=== PATIENT | male | born 1960 | race Caucasian/White ===

== ENCOUNTER 2024-04-22 10:03 | Inpatient (IN) | payer BC, SELFPAY ==
[2024-04-22] VITALS (19 sets, daily range): BP systolic 111–156; BP diastolic 68–97; PULSE 71–92; RESP 12–21; TEMP 36.6–37.2; O2SAT 97–100; BMI 26.7
--- NOTE | 2024-04-22 | ECHO_ITS ---
Patient Info Name: Delio De Jesus Age: 63 years : 1960 Gender: Male Ht: 70 in Wt: 170 lbs BSA: 1.96 m2 HR: 75 bpm Heart Rhythm: Sinus Rhythm Technical Quality: Poor Exam Date: 04/22/2024 2:42 PM Exam Location: Echo Lab Patient Status: Inpatient Admit Date: 04/22/2024 Staff Ordering Physician: Santosh Marie MD Primer Expeditor And Drier: Caitlin Tapia RDCS Attending Provider: Julien David MD Exam Type: CA echo dop color flow w con Study Info Indications - NSTEMI Complete two-dimensional, color flow and Doppler transthoracic echocardiogram is performed with contrast to opacify the left ventricle and to improve the deliniation of the left ventricle endocardial borders. Reason for Poor Study: poor echocardiographic windows Summary 1. Left ventricular chamber dimension is normal. 2. There is no increased left ventricular wall thickness. 3. Left ventricular systolic function is moderately reduced, estimated at 30-35%. There is global hypokinesis with more pronounced hypokinesis of the mid and apical segments. 4. The left ventricular diastolic function is grade I diastolic dysfunction. 5. Right ventricular systolic function is normal. 6. No significant valvular disease. Left Ventricle Left ventricular chamber dimension is normal. Left ventricular systolic function is moderately reduced, estimated at 30-35%. There is global hypokinesis with more pronounced hypokinesis of the mid and apical segments. There is no increased left ventricular wall thickness. The left ventricular diastolic function is grade I diastolic dysfunction. Right Ventricle Right ventricular chamber dimension is normal. Right ventricular systolic function is normal. Left Atria Left atrial chamber dimension is normal. Right Atria Right atrial chamber dimension is normal. Atrial Septum Intact interatrial septum visualized by color flow imaging. Aortic Valve There is no aortic valve stenosis. There is no aortic valve regurgitation. Pulmonic Valve The pulmonic valve is not well visualized. There is no pulmonic regurgitation. Mitral Valve There is trace mitral valve regurgitation. Tricuspid Valve There is trace tricuspid valve regurgitation. Pericardium/Pleural There is no pericardial effusion. Inferior Vena Cava Normal inferior vena cava with >50% collapse upon inspiration consistent with normal right atrial pressure, 3 mmHg. Aorta The aortic root size at the sinus of Valsalva is normal. Left Ventricular Outflow Tract Name Value Normal LVOT 2D LVOT Diameter 1.88 cm LVOT Doppler LVOT Peak Gradient 2 mmHg LVOT Mean Gradient 1 mmHg LVOT VTI 14.71 cm LVOT VTI/AV VTI Ratio 0.75 LVOT Stroke Volume 40.95 ml LVOT CO 3.26 l/min LVOT CI 1.67 L/min/m2 Pulmonic Valve Name Value Normal PV Doppler
--- NOTE | ~2024-04-22 | XR_ITS ---
EXAMINATION: XR chest 1V portable DATE: 04/22/2024 11:26 INDICATION: ST elevation myocardial infarction. TECHNIQUE: A single frontal view of the chest was obtained on 2 radiographs. COMPARISON: None. FINDINGS: Calcified right lung nodules and calcified right hilar lymph nodes are consistent with old granulomatous disease. No pleural effusion or pneumothorax. The heart is normal. IMPRESSION: 1. No acute cardiopulmonary disease. Reviewed, dictated and finalized at location A.
--- NOTE | 2024-04-22 09:57 | ED.CHESTPAIN ---
HPI - Chest Pain General Chief Complaint: Chest Pain Stated Complaint: STEMI alert History of Present Illness HPI narrative: 63-year-old male history of hypertension presenting as a STEMI alert. 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 EMS was called and 12 lead showed anterior elevations so STEMI alert was called. On arrival, patient is alert, oriented, hemodynamically stable. Continues to have chest pain. Cardiology is at bedside. Related Data Home Medications Medication Instructions Recorded Confirmed ergocalciferol (vitamin D2) 1,250 1,250 mcg PO DAILY 04/22/24 04/22/24 mcg (50,000 unit) capsule Allergies Allergy/AdvReac Type Severity Reaction Status Date / Time bee venom protein (honey bee) Allergy Anaphylaxis Verified 04/22/24 10:08 [bees] Review of Systems Review of Systems: ROS unobtainable: Yes unobtainable due to medical condition and other (Acuity of condition) REPLACED BY [facility] Past Medical History Medical History (Updated 04/23/24 @ 10:54 by Ángela Norton MD) COPD (chronic obstructive pulmonary disease) Hypertension Tobacco abuse Family History Family History (Updated 04/22/24 @ 11:50 by Sanjuanita Zuniga RN) Mother Heart disease Social History Social History Smoking packs per day: 2 Smoking cigarettes per day: 40.0 Smoking status: Current every day smoker Tobacco type: cigarettes Alcohol intake: current Drinks per week: 6 Substance use: current Substance use type: marijuana Do You Feel Safe in your Home?: Yes Lack of Transportation: No Lack of Food: Never True Current Housing: I Have Housing Concerned About Future Housing: No Difficulty Paying Gas/Electric Bills: No Difficulty Paying for Meds: No Currently Unemployed: No Education: Decline to Answer Difficulty w/ Childcare or Family Care: No Spiritual care concerns: No Exam Narrative: GENERAL: In no acute distress, pleasant and cooperative HEAD: Normocephalic, atraumatic. EYES: PERRLA and EOMI. ENT: Grossly unremarkable NECK: Supple. CHEST: No respiratory distress. HEART: Regular rate and rhythm. ABDOMEN: Nondistended EXTREMITIES: No edema. SKIN: Warm, dry NEURO: Alert and oriented x3. PSYCH: Normal mood and affect. Course Vital Signs Vital signs: Vital Signs Pulse Rate 71 04/22/24 10:53 Temperature 97.9 F 04/23/24 08:00 Pulse Rate 68 04/23/24 10:00 Respiratory Rate 20 04/23/24 10:00 Blood Pressure 107/76 04/23/24 10:00 Pulse Oximetry 96 04/23/24 10:00 Oxygen Delivery Room Air 04/23/24 04:00 MDM - Chest Pain MDM Narrative Medical decision making narrative: 63-year-old male presenting as a STEMI alert. Pre-hospital 12 lead shows elevations in the precordials. Cardiology is already at bedside and will take him straight to dairy laboratory technician. Differential Diagnosis Differential diagnosis: Likely st elevation myocardial infarction Medical Records Data Attestation: I reviewed the patient's medical records. Lab Data Attestation: I reviewed the patient's lab results. 04/23/24 04:01 04/23/24 04:01 Labs: Lab Results 04/22/24 04/22/24 04/22/24 Range/Units 11:03 11:03 11:03 WBC 17.6 H (4.5-10.0) K/mm3 RBC 4.87 (4.6-6.20) M/mm3 Hgb 15.9 (14.0-18.0) g/dL Hct 46.6 (42.0-52.0) % MCV 95.7 (80-100) fl MCH 32.6 (26-34) pg MCHC 34.1 (32-36) g/dl RDW 13.2 (11.5-14.5) % Plt Count 259 (150-375) k/mm3 MPV 10.0 (7.4-10.4) fl Immature Gran % (Auto) 0.6 H (0-0.5) % Neut % (Auto) 85.6 H (45.5-73.1) % Lymph % (Auto) 6.9 L (18.3-44.2) % [place] % (Auto) 6.0 (2.6-8.5) % Eos % (Auto) 0.3 (0-4.4) % Baso % (Auto) 0.6 (0.2-1.2) % Lymph # (Auto) 1.21 (0.9-3.2) K/mm3 [place] # (Auto) 1.1 H (0.1-0.6
--- NOTE | 2024-04-22 10:37 | ECG_ITS ---
Test Date: 2024-04-22 11:17:40 Measurements Intervals [place] Rate: 81 P: 79 NJ: 162 QRS: 84 QRSD: 106 T: 62 QT: 338 QTc: 393 Interpretive Statements SINUS RHYTHM NONSPECIFIC ST & T-WAVE ABNORMALITY ABNORMAL ECG No previous ECG available for comparison Electronically Signed On 04-22-2024 12:57:56 CDT by Julien David M.D.
--- NOTE | 2024-04-22 10:44 | P.HP_ITS ---
H&P: HPI History of Present Illness Date/Time: 04/22/24 10:44 Chief Complaint: chest pain Narrative: this is a 63-year-old gentleman unknown to us here at [facility]. 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 EMS was called and EKG in the field shows acute anterior wall infarction. The chest pain began about 6:00 a.m., about 4 hours prior. He has no previous history of heart disease he does report a history of hypertension. In this situation we are seeing him in the emergency room and with plans being made for emergency angiography and revascularization. Review of Systems Review of Systems: ROS unobtainable: Yes unobtainable due to medical condition Meds Home Medications and Allergies Allergies Allergy/AdvReac Type Severity Reaction Status Date / Time bee venom protein (honey bee) Allergy Anaphylaxis Verified 04/22/24 10:08 [bees] Exam Const: General: in distress and uncomfortable Other: 63-year-old white male appearing his stated age well-developed well-nourished no distress HENMT: Mouth: Yes moist mucous membranes Eyes: Sclera: sclerae normal Neck: Neck: supple and no JVD Resp: Effort & Inspection: normal respiratory effort Auscultation: clear to auscultation bilaterally Cardio: Rate: regular rate Rhythm: regular rhythm GI: GI Palp: Yes Soft to palpation Auscultation: normal bowel sounds Skin: General skin exam: normal color Neuro: Other: alert and oriented x3 Extrem: Other: no edema, good distal perfusion Assessment and Plan Assessment and plan (1) ST elevation (STEMI) myocardial infarction involving left anterior descending coronary artery: Code(s): I21.02 - ST elevation (STEMI) myocardial infarction involving left anterior descending coronary artery Status: Acute Plan this is a 63-year-old man without previous coronary history he has hypertension presents the 1st with chest pain that began about 4 hours earlier EKG will shows acute anterior current of injury. Patient will not be brought for emergency angiography and revascularization as determined by the findings Julien David MD LOCATED WITHIN [facility]
--- NOTE | 2024-04-22 10:47 | WPDCARDPROC ---
Cardiac Cath Procedure Note Date of procedure:: 04/22/24 Performing physician:: Julien David MD Indication:: ST-elevation Brief clinical history:: this is a 63-year-old man with hypertension, no previous cardiac history presenting with chest pain and EKG evidence of acute anterior wall IN Procedure Procedure performed:: emergency coronary angiography emergency PCI (SHAYY) to the LAD left ventriculography Sedation/Medication given:: fentanyl 50 mg Versed 2 mg case start time 10:09 a.m. case end time 10:33 a.m. sedation provided by Ellyn Carson RN trained observer Access site:: right femoral artery Estimated blood loss:: 25 cc Procedure note:: patient was brought to the cardiac catheterization lab in the postabsorptive state where the right femoral triangle was prepared and draped in the normal fashion. Anesthesia was provided with 1% lidocaine infiltrated locally. Using the modified Seldinger technique right femoral artery was punctured and a 6 Welsh vascular sheath was placed. After this I used a 5 Welsh JR4 catheter to engage the right coronary artery 3 projections. Following this a 6 Welsh CLS 3.5 guiding catheter was used to engage and inject the left coronary artery multiple projections. Following this the cineangiograms were reviewed PCI of the LAD was recommended and carried out as detailed below. Prior to PCI the patient received bolus and infusion of Angiomax for procedural anticoagulation. He had received aspirin in the emergency room and 180 mg of Brilinta in the laborer driver prior to start of the case. Following completion of PCI the guiding catheters were removed and a 5 Welsh angled pigtail catheter left-sided hemodynamics and injected left ventriculogram in the 30 degree COHEN projection. The case was then terminated the sheath was sutured into position he was taken to the ICU for post mi/ PCI recovery. The patient was stable condition there were no apparent procedural complications and no evidence of groin hematoma at the conclusion of the case. Findings:: Hemodynamics: Central aortic pressure is 154 over 76 left ventricle 154/14 end-diastolic 22 there is no pullback across the aortic valve. Left ventricle: The LV is of normal size. The diaphragmatic segment is akinetic the apex and mid to apical anterior wall is also akinetic. The global ejection fraction is 35-40% the left main coronary artery is nicely patent left anterior descending is a caliber artery and is 100% occluded in the portion after the major diagonal branch takes its origin. Angiographically this is consistent with an acute thrombotic occlusion. There is no antegrade filling in the LAD after this point circumflex is a moderate caliber artery giving rise to the marginal branches. The circumflex system is angiographically free of significant disease there are mild diffuse luminal irregularities identified but no significant lesions. The right coronary artery is medium in caliber and a dominant to the posterior circulation in the 2nd-3rd portion of the RCA there is a long tubular 99% stenosis that is about 25 mm in length. There is MERI 1 flow distal to this lesion. There is significant [id number] collateral filling to the distal RCA, PDA and PL branches seen on left coronary angiography. Intervention: The LAD was wired easily with 0.014 BMW coronary guidewire this was easily advanced into the apical segment of the LAD. The lesion was pre-dilated using a 3 x 10 mm Panterra balloon, 2 inflations were made which resulted in minimal residual stenosis. The target lesion was then stented using a 3.5 x 22 mm Orsiro stent deployed at 10 atmospheres for 30 seconds. At the end of this the target lesion was obliterated there was no residual stenosis disruption dissection or distal embolization. There is mild plaquing in the LAD distal to this but no other flow-limiting disease is seen in the LAD and MERI 3 flow was rest
[2024-04-22] MEDS: SODIUM CHLORIDE 0.9% IV 1,000 ML 125 ML IV CONT (10:53)
[2024-04-22] MEDS: METOPROLOL SUCCINATE EXT REL 50 MG TABCR PO (10:53)
--- NOTE | 2024-04-22 11:07 | WPDCNINT ---
Assessment and Plan Assessment and plan (1) ST elevation (STEMI) myocardial infarction involving left anterior descending coronary artery: Code(s): I21.02 - ST elevation (STEMI) myocardial infarction involving left anterior descending coronary artery Status: Acute Assessment and Plan: Acute anterior ST-elevation [place] with acute thrombotic occlusion of the mid LAD status post successful emergency revascularization ICU telemetry monitoring Check echocardiogram Removal of sheath as per Cardiology IV fluids for renal protection Aspirin Brilinta statin beta-ekta and ARB (2) Hypertension: Code(s): I10 - Essential (primary) hypertension Status: Acute Assessment and Plan: Patient has been started on Cozaar and Toprol-XL P.r.n. labetalol Monitor blood pressure and adjust medications accordingly (3) Tobacco abuse: Code(s): Z72.0 - Tobacco use Status: Acute Assessment and Plan: Long discussion with the patient. Patient was strongly counseled and encouraged to quit smoking (4) COPD (chronic obstructive pulmonary disease): Code(s): J44.9 - Chronic obstructive pulmonary disease, unspecified Status: Acute Assessment and Plan: Not in exacerbation P.r.n. DuoNeb Check chest x-ray Plan DVT prophylaxis -SCD for now Nutrition -heart healthy diet Code Status - Full Code Total Critical Care Time - 30 minutes Due to a high probability of clinically significant, life threatening deterioration, the patient required my highest level of preparedness to intervene emergently and I personally spent this critical care time directly and personally managing the patient. This critical care time included obtaining a history; examining the patient; pulse oximetry; ordering and review of studies; arranging urgent treatment with development of a management plan; evaluation of patient's response to treatment; frequent reassessment; and discussions with other providers. It was exclusive of separately billable procedures and treating other patients and teaching time. 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 Patient states that he had episode of chest pain along with pain in the left arm yesterday which resolved by itself. Today while he was driving pain started around 6:00 a.m.. Pain was in the central chest sharp 10 out 10 severe and radiated to left arm. Patient states the gradually chest pain kept on getting worse which forced him to called EMS. Pain was associated with nausea but no vomiting, also severe shortness of breath but no dizziness lightheadedness or loss of consciousness. Review of system was positive for chronic cough which is as stated with dry white phlegm which he blames it on his COPD. All other systems were reviewed and negative EKG done by EMS showed ST segment elevation in anterior leads. Patient was taken to cardiac catheterization lab as STEMI Cardiac catheterization showed following 1. right coronary dominant circulation presenting with acute anterior ST-elevation [place] with acute thrombotic occlusion of the mid LAD as described above 2. successful emergency revascularization using the 3.5 x 22 mm [employer] mission stent with an excellent angiographic outcome. 3. High-grade long tubular subtotal stenosis of the RCA which is clearly chronic as there is significant left to right collateral filling at this disease is clearly unrelated to the emergency presentation 4. left ventricular systolic dysfunction with both diaphragmatic akinesia as well as akinesia of the mid to apical anterior segment. LVEDP is moderately elevated Emily
--- NOTE | 2024-04-22 11:10 | ADMGEN ---
This patient, Delio De Jesus, was admitted to Intensive Care Unit-2 at 1055. Patient/family oriented to hospital policies and general routines including ID bracelet, bed and alarms, visiting hours, pain management, procedures, bathroom and other care routines, personal items, smoking policy, room service/diet, and visiting hours. Information on how to activate the Rapid Response Team has been discussed. Patient/Family are encouraged to report perceived risks to care and to ask questions if they do not understand what they are told or what they should do.
[2024-04-22 11:14] LABS: Basophils Absolute Auto 0.1 K/mm3 (0.0-0.1); Basophils Percent Auto 0.6 % (0.2-1.2); Eosinophils Absolute Auto 0.1 K/mm3 (0-0.3); Eosinophils Percent Auto 0.3 % (0-4.4); Hematocrit 46.6 % (42.0-52.0); Hemoglobin 15.9 g/dL (14.0-18.0); Immature Granulocyte Absolute 0.11 K/mm3 (0.00-0.031); Immature Granulocyte Percent A 0.6 % (0-0.5); Lymphocytes Absolute Auto 1.21 K/mm3 (0.9-3.2); Lymphocytes Percent Auto 6.9 % (18.3-44.2); Mean Corpuscular HGB Conc 34.1 g/dl (32-36); Mean Corpuscular Hemoglobin 32.6 pg (26-34); Mean Corpuscular Volume 95.7 fl (80-100); Monocytes Absolute Auto 1.1 K/mm3 (0.1-0.6); Neutrophils Absolute Auto 15.1 K/mm3 (1.3-6.7); Neutrophils Percent Auto 85.6 % (45.5-73.1); Platelet Count Result 259 k/mm3 (150-375); Red Blood Count 4.87 M/mm3 (4.6-6.20); Red Cell Distribution Width 13.2 % (11.5-14.5); White Blood Count 17.6 K/mm3 (4.5-10.0)
[2024-04-22 11:24] LABS: INR 2.4; Prothrombin Time 26.1 Seconds (11.1-14.7)
[2024-04-22 11:26] LABS: Partial Thromboplastin Time 80.5 Seconds (22.3-36.8)
[2024-04-22 11:42] LABS: Alanine Aminotransferase 16 U/L (6-50); Albumin Level 3.8 g/dL (3.5-5.1); Alkaline Phosphatase 123 U/L (38-126); Anion Gap 8 mmol/L (4-12); Aspartate Amino Transferase 28 U/L (17-59); Bilirubin,Total 0.9 mg/dL (0.2-1.3); Blood Urea Nitrogen 16 mg/dL (9-20); Calcium 8.8 mg/dL (8.4-10.2); Carbon Dioxide 28 mmol/L (22-30); Chloride 100 mmol/L (98-107); Cholesterol 183 mg/dL (0-200); Creatine Kinase 144 U/L (55-170); Estimated Glomerular Filt Rate > 60; Glucose 165 mg/dL (65-110); HDL Direct 40 mg/dL; Magnesium 1.8 mg/dL (1.6-2.3); Phosphorus 2.1 mg/dL (2.5-4.5); Potassium 4.5 mmol/L (3.4-5.0); Sodium 136 mmol/L (137-145); Triglycerides 61 mg/dL (<150)
[2024-04-22 11:52] LABS: LDL Cholesterol Direct 126 mg/dL
[2024-04-22 12:05] LABS: NT Pro B Type Natriuretic Pept 83 pg/mL (19.9-100)
[2024-04-22 12:52] LABS: MRSA (PCR) NOT DETECTED (NOT DETECTE)
[2024-04-22] MEDS: PERFLUTREN LIPID MICROSPHERES 1.5 ML VIAL DILUTED TO 10 ML TOTAL VOLUME IV PUSH (15:00)
[2024-04-22] MEDS: POTASSIUM/PHOSPHORUS/SODIUM 1.5 GM PACKET 1 PACKET PO (15:31)
--- NOTE | 2024-04-22 15:46 | IVDEFINITY ---
Prior to administration of IV Definity the patient was educated on the risks and benefits of the imaging enhancing agent including potential adverse side effects. The patient verbalized understanding. Allergies were verified. No exclusion criteria were identified and at least one of the following inclusion criteria were met: 1) physician request, 2) patient technically difficult to image (per the [place] [employer]chocardi[employer] guidelines of two or more segments not discernable within the apical view), or 3) questionable left ventricular function. ?
[2024-04-22] MEDS: TICAGRELOR 90 MG TABLET PO (20:48)
[2024-04-23] VITALS (7 sets, daily range): BP systolic 107–140; BP diastolic 73–92; PULSE 68–92; RESP 18–28; TEMP 36.6–36.8; O2SAT 95–98
[2024-04-23 04:05] LABS: Hematocrit 48.8 % (42.0-52.0); Hemoglobin 16.4 g/dL (14.0-18.0); Mean Corpuscular HGB Conc 33.6 g/dl (32-36); Mean Corpuscular Hemoglobin 31.8 pg (26-34); Mean Corpuscular Volume 94.8 fl (80-100); Mean Platelet Volume 9.9 fl (7.4-10.4); Platelet Count Result 288 k/mm3 (150-375); Red Blood Count 5.15 M/mm3 (4.6-6.20); Red Cell Distribution Width 13.2 % (11.5-14.5); White Blood Count 16.2 K/mm3 (4.5-10.0)
[2024-04-23 04:18] LABS: Alanine Aminotransferase 25 U/L (6-50); Albumin Level 3.9 g/dL (3.5-5.1); Alkaline Phosphatase 113 U/L (38-126); Anion Gap 4 mmol/L (4-12); Aspartate Amino Transferase 79 U/L (17-59); Bilirubin,Total 1.9 mg/dL (0.2-1.3); Blood Urea Nitrogen 8 mg/dL (9-20); Calcium 9.1 mg/dL (8.4-10.2); Carbon Dioxide 27 mmol/L (22-30); Chloride 106 mmol/L (98-107); Estimated CRCL calculation 92 ml/min; Estimated Glomerular Filt Rate > 60; Glucose 121 mg/dL (65-110); Magnesium 1.8 mg/dL (1.6-2.3); Potassium 4.2 mmol/L (3.4-5.0); Sodium 137 mmol/L (137-145)
--- NOTE | 2024-04-23 05:11 | ECG_ITS ---
Test Date: 2024-04-23 08:44:26 Measurements Intervals [place] Rate: 76 P: 76 NJ: 161 QRS: 83 QRSD: 92 T: 52 QT: 411 QTc: 465 Interpretive Statements SINUS RHYTHM WITH OCCASIONAL SUPRAVENTRICULAR PREMATURE COMPLEXES ST DEVIATION AND MODERATE T-WAVE ABNORMALITY, RECENT ANTEROLATERAL MYOCARDIAL INFARCTION Compared to ECG 04/22/2024 11:17:40 ST AND T WAVE ABNORMALITY IN THE ANTEROLATERAL LEADS INDICATIVE OF RECENT ANTEROLATERAL NV Electronically Signed On 04-23-2024 10:38:28 CDT by Ángela Norton M.D.
--- NOTE | 2024-04-23 08:32 | WPDINTPN ---
Progress Note: A&P Assessment and Plan (1) ST elevation (STEMI) myocardial infarction involving left anterior descending coronary artery: Code(s): I21.02 - ST elevation (STEMI) myocardial infarction involving left anterior descending coronary artery Status: Acute Assessment and Plan: Acute anterior ST-elevation [place] with acute thrombotic occlusion of the mid LAD status post successful emergency revascularization Continue telemetry monitoring echocardiogram done and report pending Removal of sheath as per Cardiology IV fluids for renal protection were given and now off Aspirin Brilinta statin beta-ekta and ARB (2) Hypertension: Code(s): I10 - Essential (primary) hypertension Status: Acute Assessment and Plan: Patient has been started on Cozaar and Toprol-XL P.r.n. labetalol Monitor blood pressure and adjust medications accordingly (3) Tobacco abuse: Code(s): Z72.0 - Tobacco use Status: Acute Assessment and Plan: 04/22 Long discussion with the patient. Patient was strongly counseled and encouraged to quit smoking (4) COPD (chronic obstructive pulmonary disease): Code(s): J44.9 - Chronic obstructive pulmonary disease, unspecified Status: Acute Assessment and Plan: Not in exacerbation P.r.n. DuoNeb Chest x-ray unremarkable (5) Electrolyte abnormality: Code(s): E87.8 - Other disorders of electrolyte and fluid balance, not elsewhere classified Status: Acute Assessment and Plan: Low phosphate replaced Plan DVT prophylaxis -SCD for now in the bed I anticipate patient will ambulate today Nutrition -heart healthy diet Code Status - Full Code Transfer out ICU today Subjective Date/time seen: 04/23/24 Overnight events reviewed. Afebrile On room air Sinus rhythm on the monitor Other Vitals acceptable Patient denies any new complaints states he had 1 episode of chest pain radiating to left arm which is only 1/10 severe and only lasted for few seconds last night. No pain at this time. Eating his breakfast. Review of system was positive for cough. All other systems were reviewed and were negative Review of Systems Review of Systems: All systems reviewed & are unremarkable except as noted in HPI and below (HPI) Exam Narrative: General: Pt is alert awake and in NAD Lungs/Chest: Trachea central Clear BS B/L, No crackles or wheezing. Cardiac: RRR. Normal S1 S2. No murmurs Circulation: Pedal pulses are intact and symmetrical. right groin with no hematoma or swelling around it Abdomen: Normal bowel sounds.. Soft. NT. ND. Extremities: No clubbing, cyanosis or edema. Warm : Murillo in place Neurologic: Follows commands. Moves all 4 extremities PERRL AO x3 Skin: No Rash Objective Data Vital Signs Vital Signs: Vital Signs - 24 hr 04/22/24 10:53 04/22/24 11:27 04/22/24 11:55 Temperature 37.2 C Pulse Rate 71 81 73 Respiratory Rate 18 15 Blood Pressure 125/77 122/73 Pulse Oximetry 99 99 Oxygen Delivery 04/22/24 12:00 04/22/24 12:00 04/22/24 12:00 Temperature Pulse Rate 75 75 75 Respiratory Rate 12 12 Blood Pressure 122/70 Pulse Oximetry 99 99 Oxygen Delivery Room Air 04/22/24 12:00 04/22/24 12:27 04/22/24 14:00 Temperature 37.1 C 37.2 C Pulse Rate 73 76 81 Respiratory Rate 16 18 17 Blood Pressure 122/70 116/68 124/83 Pulse Oximetry 99 98 98 Oxygen Delivery 04/22/24 13:27 04/22/24 13:45 04/22/24 14:00 Temperature Pulse Rate 84 81 77 Respiratory Rate 18 17 Blood Pressure 113/75 129/86 Pulse Oximetry 98 98 Oxygen Delivery 04/22/24 14:27 04/22/24 15:27 04/22/24 16:00 Temperature Pulse Rate 80 83 84 Respiratory Rate 17 20 Blood Pressure 118/71 116/97 H Pulse Oximetry 97 99 Oxygen Delivery 04/22/24 16:00 04/22/24 16:00 04/22/24 16:27 Temperature 36.6 C Pulse Rate 84 84 79 Respiratory Rate 20 20 14 Blood Pressure 141/95 H 138/95 H Pulse Ox
[2024-04-23] MEDS: ROSUVASTATIN 10 MG TABLET 20 MG PO (08:47)
[2024-04-23] MEDS: TICAGRELOR 90 MG TABLET PO (08:47)
[2024-04-23] MEDS: LOSARTAN POTASSIUM 25 MG TABLET PO (08:47)
[2024-04-23] MEDS: ASPIRIN 81 MG CHEWABLE TABLET PO (08:47)
[2024-04-23] MEDS: METOPROLOL SUCCINATE EXT REL 50 MG TABCR PO (08:47)
--- NOTE | 2024-04-23 10:47 | PM.DS ---
DS: Admitting Diagnosis Discharge Date 04/23/2024 Admitting Diagnosis STEMI DS: Discharge Diagnosis Discharge Diagnosis (1) ST elevation (STEMI) myocardial infarction involving left anterior descending coronary artery: Code(s): I21.02 - ST elevation (STEMI) myocardial infarction involving left anterior descending coronary artery Status: Acute (2) Hypertension: Code(s): I10 - Essential (primary) hypertension Status: Acute (3) Tobacco abuse: Code(s): Z72.0 - Tobacco use Status: Acute (4) Ischemic cardiomyopathy: Code(s): I25.5 - Ischemic cardiomyopathy Status: Acute DS: Summary Hospital Course Reason for hospitalization: STEMI Hospital Course: Patient presented with an acute anterior STEMI. Underwent emergent cardiac catheterization which showed: 1. Right coronary dominant circulation presenting with acute anterior ST-elevation AK with acute thrombotic occlusion of the mid LAD 2. Successful emergency revascularization using the 3.5 x 22 mm [place] mission stent with an excellent angiographic outcome. 3. 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 4. Left ventricular systolic dysfunction with both diaphragmatic akinesia as well as akinesia of the mid to apical anterior segment. LVEDP is moderately elevated. Post primary PCI, patient's chest pain resolved without recurrence. He was admitted to the ICU without further issues or complications. Echocardiogram shows LVEF 30-35% with global hypokinesis with more pronounced hypokinesis of the mid and apical segments. No significant valvular disease. No arrhythmias noted post PCI. For his CAD with STEMI s/p LAD PCI, patient started on ASA and Brilinta, along with high intensity statin. Will continue with medical management for now for his RCA disease. Can consider outpatient PCI vs medical management depending on how he does. For his ischemic cardiomyopathy, patient was started on Losartan and Toprol. Patient lives in [place], [place] and is already working on getting a truck driver flatbed closer to home for follow up. Status at Discharge Functional status at discharge: independent ambulation Overall status at discharge: patient is back to baseline Time Spent with Patient Time attestation: Total time spent providing and/or coordinating discharge services: Exam Const: General: comfortable and no acute distress HENMT: Mouth: Yes moist mucous membranes Eyes: General: appearance normal, both eyes and all related structures Sclera: sclerae normal Resp: Effort & Inspection: normal respiratory effort Cardio: Rate: regular rate Rhythm: regular rhythm Skin: General skin exam: normal color Psych: Mental Status: mental status grossly normal Affect: normal affect DS: Data Data Completed and Pending Labs on day of discharge: Labs from last 24 hours 04/23/24 04/22/24 04/22/24 04:01 19:28 14:04 WBC 16.2 H RBC 5.15 Hgb 16.4 Hct 48.8 MCV 94.8 MCH 31.8 MCHC 33.6 RDW 13.2 Plt Count 288 MPV 9.9 Immature Gran % (Auto) Neut % (Auto) Lymph % (Auto) [place] % (Auto) Eos % (Auto) Baso % (Auto) Lymph # (Auto) [place] # (Auto) Eos # (Auto) Baso # (Auto) Abs Immat Gran (auto) Absolute Neuts (auto) Absolute Nucleated RBC Nucleated RBC % PT INR APTT Sodium 137 Potassium 4.2 Chloride 106 Carbon Dioxide 27 Anion Gap 4 BUN 8 L D Creatinine 0.70 Estim Creat Clear Calc 92 Estimated GFR > 60 Glucose 121 H Calcium 9.1 Phosphorus Magnesium 1.8 Total Bilirubin 1.9 H AST 79 H ALT 25 Alkaline Phosphatase 113 Total Creatine Kinase Troponin I 16.300 H* D 11.300 H* D NT-Pro-B Natriuret Pep Total Protein 7.0 Albumin 3.9 Triglycerides Cholesterol
--- NOTE | 2024-04-23 14:48 | PC.NURSE ---
Patient has discharge orders at 1044, IV removed, telemetry removed. Patient took bath and put home clothes on. Awaiting family to product picker, family lives 2 hours away.
== END 2024-04-23 15:44 | disposition home or self-care (01) | DRG 322 ==
LOC: ANH3MEDSUR 04-25 15:02 → ANHICU 04-25 15:02
PROVIDERS: Internal Medicine; Admitting Provider Specialist; Visit Provider Internal Medicine
PROC: 4A023N7 Measurement of Cardiac Sampling and Pressure, Left Heart, Percutaneous Approach (ICD-10-PCS; CPT 93452; principal; 2024-04-22 10:00)
PROC: 027034Z Dilation of Coronary Artery, One Artery with Drug-eluting Intraluminal Device, Percutaneous Approach (ICD-10-PCS; 2024-04-22 10:00)
DX: I21.02 ST elevation (STEMI) myocardial infarction involving left anterior descending coronary artery (principal); I25.10 Atherosclerotic heart disease of native coronary artery without angina pectoris; I10 Essential (primary) hypertension; I25.5 Ischemic cardiomyopathy; J44.9 Chronic obstructive pulmonary disease, unspecified; E87.8 Other disorders of electrolyte and fluid balance, not elsewhere classified; F17.210 Nicotine dependence, cigarettes, uncomplicated
CPT/HCPCS: 36415; 71045; 80053; 80061; 82550; 83735; 83880; 84100; 84443; 84484; 85025; 85027; 85610; 85730; 87641; 93005; 93458; A9270; C1769; C1874; C1887; C1894; C7532; C8929; C9606; J0461; J0583; J1644; J7030; J7040; Q9957